=== PATIENT | male | born 1980 | race Caucasian/White ===

== ENCOUNTER 2024-11-29 15:38 | Outpatient (AMB) | payer OTHER, SELFPAY ==
--- NOTE | 2024-11-29 15:46 | A.OFFVIS_ITS ---
Intake Visit Reasons: history of nephrolithiasis and pyelonephritis Intake Note: New Patient presents for initial visit for nephrolithiasis and pyelonephritis Urology Medications: none Blood Thinner:none Church Warden Required: No Accompanied by: Self / Same As Patient Allergies pecans Allergy (Uncoded 11/29/24 17:19) Anaphylaxis Medication List - Last Reconciled 11/29/24 by BABS Quach lisinopril 10 mg PO DAILY omeprazole 20 mg PO BID HPI Comments Details: Greg is a very pleasant 44-year-old male patient of . He has a past medical history of hypertension and GERD. He presents to the office today as a new patient for his longstanding history of nephrolithiasis. In discussion with the patient today he reports a longstanding history of nephrolithiasis since 2020 and had previously followed up with Dr. Jacques in the past. He reports this past fall he incontinent of the episode of nephrolithiasis associated with hematuria at which time he followed up at [facility] in a CT KUB was ordered for further assessment evaluation. These results were reviewed with the patient today. Bilateral kidneys with no hydronephrosis, nephrolithiasis, or suspicious masses. There is circumferential bladder wall thickening with surrounding stranding suggestive of acute cystitis. He reports shortly after his ER visit pain had since subsided. He has had no bothersome urinary issues or concerns since July 2024. In office urinal ysis results reviewed with the patient today. We discussed at length potential causes of nephrolithiasis as well as adequate hydration relation to nephrolithiasis. He denies urinary urgency, urinary frequency, incontinence, nocturia, hematuria, dysuria, foul smelling urine, changes to urinary stream, flank pain, fever, and or chills. He is happy with his current voiding parameters. We discussed obtaining retroperitoneal ultrasound for further assessment evaluation. He otherwise offers no other issues or concerns at this time. [facility] Medical History (Updated 11/29/24 @ 17:18 by Kassi Phipps) History of Mohs micrographic surgery for skin cancer Severe obesity (BMI 35.0-39.9) with comorbidity Recurrent sinus infections History of kidney stones Hematuria Essential hypertension Chronic GERD Binge eating disorder Basal cell carcinoma of head Acute pyelonephritis Surgical History (Updated 11/29/24 @ 17:18 by Kassi Phipps) History of lithotripsy History of gastric restrictive surgery Review of Systems Const All systems reviewed & are unremarkable except as noted in HPI and below Physical Exam Const General: cooperative, healthy appearing, comfortable, no acute distress, well developed, alert and awake Nutritional Appearance: overweight Orientation/consciousness: patient oriented x3 Limitations: no limitations HEENT Head: Yes normal to inspection, Yes normocephalic and Yes atraumatic Ears: hearing grossly normal bilaterally Eyes General: appearance normal, both eyes and all related structures Neck Neck: Yes normal visual inspection and Yes trachea midline Chest Chest palpation & inspection: normal inspection of the chest Resp Effort & Inspection: normal respiratory effort and able to speak in complete sentences Cardio Rate: regular rate GI Inspection: Yes normal to inspection General: Yes no CVA tenderness Back/Spine/Pelvis Back: no CVA tenderness Skin General skin exam: no rashes or lesions noted Neuro General: patient oriented x3 Extrem General: Yes normal to inspection Psych Appearance: grossly normal and well kempt Mental Status: mental status grossly normal Speech and movement: Normal speech and movement present and Clear speech present Affect: normal affect Attitude: cooperative Thought process: Normal thought process present Thought content: Normal thought content present Insight: Fair insight present (Psych) Judgement: Fair judgement present (Psych) Results AMB Urinalysis, Automated UA Leukoctes 0 Krishan/uL Last Edit by Kassi Phipps on 11/29/24 17:20 UA Nitrite Last Edit by Kassi Phipps on 11/29/24 17:20 UA Urobilinogen 0.2 mg/dL Last Edit by Kassi Phipps on 11/29/24 17:20 UA Protein 0 mg/dL Last Edit by Kassi Phipps on 11/29/24 17:20 UA pH 6.0 Last Edit by Kassi Phipps on 11/29/24 17:20 UA Blood 0 Blas/uL Last Edit by Kassi Phipps on 11/29/24 17:20 UA Specific [place] 1.025 Last Edit by Kassi Phipps on 11/29/24 17:20 UA Ketone Last Edit by Kassi Phipps on 11/29/24 17:20 UA Bilirubin 0 mg/dL Last Edit by Kassi Hensonchirag on 11/29/24 17:20 UA Glucose 0 mg/dL Last Edit by Kassi Hensonchirag on 11/29/24 17:20 Results Reviewed Results Reviewed: Laboratory Last Values Urine pH (Auto) 6.0 11/29/24 17:19 Specific [place] (Auto) 1.025 11/29/24 17:19 Urine Protein (Auto) 0 mg/dL 11/29/24 17:19 Glucose (UA)(Auto) 0 mg/dL 11/29/24 17:19 Urine Blood (Auto) 0 Blas/uL 11/29/24 17:19 Urine Bilirubin (Auto) 0 mg/dL 11/29/24 17:19 Urine Urobilinogen (Auto) 0.2 mg/dL 11/29/24 17:19 Leukocyte Esterase (Auto) 0 Krishan/uL 11/29/24 17:19 Assessment & Plan Assessment & Plan (1) Nephrolithiasis: Code(s): N20.0 - Calculus of kidney Category: Medical Plan In office urinalysis results reviewed the patient today; as noted above. Previous CT abdomen and pelvis results reviewed with the patient today; as noted above. We discussed at length potential causes of nephrolithiasis as well as hematuria. We discussed importance of adequate hydration relation to nephrolithiasis as well as overall health and well-being. Will obtain retroperitoneal ultrasound for further assessment evaluation. Patient currently denies any bothersome urinary issues or concerns. Reports be happy with current voiding parameters. Follow-up in 1-3 months with imaging to be completed prior; or sooner with any issues, concerns, and or questions. Orders: Orders AMB Urinalysis Automated Today Z13.9 - Encounter for screening, unspecified US retroperitoneal comp Today N20.0 - Calculus of kidney Patient Instructions: The patient had an opportunity to ask questions regarding the treatment plan. All questions were answered. Physical exam, labs, and imaging were discussed and reviewed in detail. As well as risks, benefits, and discussion of treatment choices. No major barriers to understanding were identified. The patient expressed understanding and agreement with the above treatment plan. The patient was made aware they should contact our office by phone for worsening of their current condition, the appearance of new symptoms, or with any questions or concerns. Compliance is encouraged with any medications and follow up testing that is ordered. It is a privilege to be allowed the opportunity to participate in? your urological care.? Again, if you have any questions or concerns If you have any questions or concerns please do not hesitate to contact me. The office is [phone]. This note is constructed using voice recognition software. While every effort has been made to ensure accuracy gyroscopic instrument mechanic errors may have been included. Yours sincerely, ЮЛИЯ Quach Coding Level of Care Code New Pt Level 3 (28605) Diagnoses Nephrolithiasis N20.0
== END 2024-11-29 16:30 | disposition home or self-care (01) ==
PROVIDERS: PCP Internal Medicine; Visit Provider Nurse Practitioner Family
DX: Z13.9 Encounter for screening, unspecified (principal); N20.0 Calculus of kidney
CPT/HCPCS: 99203

== ENCOUNTER → 2024-11-29 15:38 | Outpatient (BNVA) | payer OTHER, SELFPAY | PROVIDERS: PCP Internal Medicine; Visit Provider Nurse Practitioner Family | DX: N20.0 Calculus of kidney (principal) | CPT/HCPCS: 81003 ==

== ENCOUNTER 2025-02-17 09:44 | Outpatient (REF) | payer OTHER, SELFPAY ==
--- NOTE | ~2025-02-17 | US_ITS ---
CLINICAL HISTORY: N20.0 - Calculus of kidney US retroperitoneum with color Doppler Comparison: None Findings: Right kidney normal size and echotexture, 11.5 cm length. No hydronephrosis. Normal color flow. No nephrolithiasis. No renal masses. Left kidney normal size and echotexture, 12.4 cm in length. No hydronephrosis. Normal color flow. No nephrolithiasis. No renal masses. Urinary bladder is unremarkable. Prevoid volume 254.0 mL. Postvoid volume 25 0.0 mL. Ureteral jets are visualized bilaterally. Prostate measures 3.6 x 4.1 x 3.4 cm. Impression: 1. Normal kidneys. 2. Elevated postvoid residual there is mild. 3. Prostate volume 26.4 mL This document has been electronically signed by: Shorty De Santiago MD on 02/17/2025 12:24:28
--- OUTSIDE RECORDS SUMMARY | 2025-02-17 10:16 | XMS_ITS | Patient Health Record ---
Author Organization [facility] Address [address] [place] [address] Care Team Providers Care Pharmacy Innovation Assistant Name Role Phone KEVIN GREY Unavailable [phone] BULMARO DEMPSEY Unavailable [phone] ALLERGIES Allergen (clinical drug ingredient) Drug/Non Drug Allergy documented on EMR Reaction Allergy Type Onset Date Status pecan allergenic extract Pecan Nut (Diagnostic) swell Drug Allergy Activ e REASON FOR REFERRAL No Information MEDICATIONS Medication SIG (Take, Route, Fr equency, Duration) Notes Start Date End Date Status Lisinopril 10 MG 1 tablet Orally Once a day Active Zepbound 2.5 MG/0.5ML 0.5 mL Subcutaneou s once a week for 30 days 01/13/2025 Active SOCIAL HISTORY Tobacco Use: Social History Observation Description Date Details (start date - stop date) Never Smoker NA - NA Sex Assigned At : Social History Observation Description Sex Assigned At Unknown Tobacco Use/Smoking Question Answer Notes Are you a nonsmoker Alcohol Screen (Audit-C) Question Answer Notes Did you have a drink containing alcohol in the p ast year? Yes Points 0 Interpretation Negative PROBLEMS Problem Type ICD Code Onset Dates Problem Status W/U Status Risk SNOMED Code Notes Problem Essential hypertension (I10) Active confirmed 96600666 Problem BMI 35.0-35.9,adult (Z68.35) Active confirmed 792212883 Problem BMI 34.0-34.9,adult (Z68.34) Active confirmed 478177307 VITAL SIGNS Heart Rate 87 /min 02/09/2025 Blood pressure diastolic 80 mm Hg 02/09/2025 Oximetry 97 % 02/09/2025 Height 71 in 02/09/2025 Blood pressure systolic 132 mm Hg 02/09/2025 Weight 247.5 lbs 02/09/2025 BMI 34.52 kg/m2 02/09/2025 Encounters Encounter Location Date Provider Diagnosis [facility] [address] [facility] [place] [address] 01/18/[address] [address] [place] [address] 01/25/[address] [facility] [address] [facility] [place] [address] 02/01/[address] [facility] [address] [facility] [place] [address] 02/16/[address] [facility] [address] [facility] [place] [address] 01/10/2025 KEVIN QUE BMI 35.0-35.9,adult Z68.35 ; Obesity, Class II, BMI 35-39.9 E66.812 and Essential hypertension I10 [facility] [address] [place] [address] 02/09/2025 KEVIN QUE BMI 34.0-34.9,adult Z68.34 ; Obesity (BMI 30.0-34.9) E66.811 and Essential hypertension I10 [facility] [address] [place] [address] 01/12/[address] [facility] [address] [place] [address] 01/17/[address] [facility] [address] [place] [address] 01/18/[address] [facility] [address] [place] [address] 01/18/[address] [facility] [address] [place] [address] 01/18/[address] [facility] [address] [place] [address] 01/18/[address] [facility] [address] [place] [address] 01/18/2025 KEVIN QUE ASSESSMENTS Encounter Date Diagnosis Assessment Notes Treatment Notes Treatment Clinical Notes Section Notes 01/10/2025 BMI 35.0-35.9,adult (ICD-10 - Z68.35) Elder is a pleasant 44-year-old male who presents to the office today for weight management. 01/10/2025:BMI 35.18, weight 252.3 patient states that he would like to trial lifestyle changes at this time. Patient encouraged to call the office if he would like to book an appointment for semaglutide as I feel as though he would be a good candidate for this medication. We spent a lot of time discussing the relationship between food, exercise, sleep, mental health and obesity. Patient was counseled on the importance EATING local, organic food when possible. Patient was educated on clean 15 and dirty dozen. I provided information about reading books called The Food Rules by Johnny Art and Eat Fat Get Lean by Dr Haylie Kolb. Self education is important in the journey for weight management. Patient was offered diagnostic testing. We want to measure visceral adiposity, advanced body composition, adverse lipids, fatty acid balance, risk for heart disease and atherosclerosis, markers of inflammation and genetic susceptibility. Patient was counseled on weight management and was advised to lose weight using A. Meal Replacement Products Patient was educated on the replacement products called optifast. This is a good way of taking fixed amount of calories. It has been shown in studies to be ineffective weight management tool. This however has to be coupled with lifestyle intervention as well as laboratory data and EKG monitoring. It is impossible to know how a person will tolerate complete meal replacement. The side effects of meal replacement and weight loss could include syncopal attacks, dizziness, gallstones, potential cholecystectomy, possible heart attack and even . The benefits of meal replacement would be potential weight loss but no guarantees can be made. Meal replacement products are not covered by insurance. Once the patient has bought these products we cannot return them B. Lifestyle management which includes several strategies as below 1. Eat a low carbohydrate good fat good protein diet. Eliminate refined carbohydrates from the diet. Continue blood sugar and sugared beverages. Eat local organic when possible. Cook your own meals. Read food labels. None about healthy snacks. Portion control and food with low glycemic index 2. Exercise regularly. Try to get at least 6000 steps a day. Use a predominant to track activity level. Consider using apps like LUMOback, UpOutpal, lose it, stick as needed for self-monitoring and weight management. Consider group exercises. Consider hiring a personal development educator. Regular exercise is story to sustainable health and prevents as a buffer against weight regain 3. Sleep is most important for healing. Tried to sleep at least 8 hours a night. A good quality sleep needs a sleep ritual with ideal room temperature of around 68. It might help to take a shower and have no electronics in the room and sleep in a very dark room without artificial light. Start her sleep routine and get up early in the morning and go to bed on time 4. Make a social connection. Surround yourself with positive people with positive energy. Connect with friends and family. 5. Get into the habit of meditating and mindfulness while doing everything. 6. Go outside and connect with nature. C. Prescription medications Patient was educated on the use of prescription medications for medical weight loss. This is a growing list and includes phentermine, Topamax,Qsymia, contrave, belviq and saxenda. All prescription medications could have side effects including but not limited to kidney stones seizure disorder cardiac arrhythmias heart attack pancreatitis etc. etc.. Patient was encouraged to read the prescription insert and have coaching with their pharmacist and make an informed decision about taking medication and know that these medications are being prescribed with good intentions and we do not know how a patient would react to her medication. Sudden medications are FDA approved for weight loss and there is also off label use depending on patient's inability to afford medications in an attempt to lose weight D. Behavioral counseling was done to establish a relationship between food and an mood. Patient was provided information about local counseling including the office of Dr. Cason in [place] and Dr Alba at [facility]. We would like to cover regular topics and build on low glycemic eating exercise mindful eating, using yoga and meditation along with deep breathing and connecting with friends and family. E. Patient's current medications were reviewed and opinion was given on medication that can cause weight gain and can be substituted F. Patient was assessed for risk with obesity including and not limiting to atherosclerosis heart disease stroke kidney disease, restrictive lung disease, irritable bowel syndrome and overall mortality. Risk of developing prediabetes diabetes and metabolic syndrome was discussed G. Therapeutic plan: We have decided to make therapeutic plan which would include choosing wisely on calories restricting portion getting active, tracking weight, getting good quality sleep and working on time management H. Patient will follow up in 4 weeks for weight management Total time spent today was 60 minutes of which greater than 50% was spent on coordinating and counseling All questions have been answered to patient's satisfaction. Patient verbalized understanding of diagnosis and treatments explained. Advised to call sooner prior to next visit it any questions/concerns arise. Case discussed with Toñito ACRRERA who reviewed the assessment and plan. Chart, medications, labs, vital signs reviewed. Dictation was accomplished with the use of Elixent voice recognition software, which is prone to medical misidentifications and grammatical errors. This are unintentional and the practitioner does try to identify and correct these, but some could still be present. Please do not hesitate to contact practitioner for clarification. 01/10/2025 Obesity, Class II, BMI 35-39.9 (ICD-10 - E66.812) Elder is a pleasant 44-year-old male who presents to the office today for weight management. 01/10/2025:BMI 35.18, weight 252.3 patient states that he would like to trial lifestyle changes at this time. Patient encouraged to call the office if he would like to book an appointment for semaglutide as I feel as though he would be a good candidate for this medication. We spent a lot of time discussing the relationship between food, exercise, sleep, mental health and obesity. Patient was counseled on the importance EATING local, organic food when possible. Patient was educated on clean 15 and dirty dozen. I provided information about reading books called The Food Rules by Johnny Art and Eat Fat Get Lean by Dr Haylie Kolb. Self education is important in the journey for weight management. Patient was offered diagnostic testing. We want to measure visceral adiposity, advanced body composition, adverse lipids, fatty acid balance, risk for heart disease and atherosclerosis, markers of inflammation and genetic susceptibility. Patient was counseled on weight management and was advised to lose weight using A. Meal Replacement Products Patient was educated on the replacement products called optifast. This is a good way of taking fixed amount of calories. It has been shown in studies to be ineffective weight management tool. This however has to be coupled with lifestyle intervention as well as laboratory data and EKG monitoring. It is impossible to know how a person will tolerate complete meal replacement. The side effects of meal replacement and weight loss could include syncopal attacks, dizziness, gallstones, potential cholecystectomy, possible heart attack and even . The benefits of meal replacement would be potential weight loss but no guarantees can be made. Meal replacement products are not covered by insurance. Once the patient has bought these products we cannot return them B. Lifestyle management which includes several strategies as below 1. Eat a low carbohydrate good fat good protein diet. Eliminate refined carbohydrates from the diet. Continue blood sugar and sugared beverages. Eat local organic when possible. Cook your own meals. Read food labels. None about healthy snacks. Portion control and food with low glycemic index 2. Exercise regularly. Try to get at least 6000 steps a day. Use a predominant to track activity level. Consider using apps like LUMOback, myfitnesspal, lose it, stick as needed for self-monitoring and weight management. Consider group exercises. Consider hiring a personal development educator. Regular exercise is story to sustainable health and prevents as a buffer against weight regain 3. Sleep is most important for healing. Tried to sleep at least 8 hours a night. A good quality sleep needs a sleep ritual with ideal room temperature of around 68. It might help to take a shower and have no electronics in the room and sleep in a very dark room without artificial light. Start her sleep routine and get up early in the morning and go to bed on time 4. Make a social connection. Surround yourself with positive people with positive energy. Connect with friends and family. 5. Get into the habit of meditating and mindfulness while doing everything. 6. Go outside and connect with nature. C. Prescription medications Patient was educated on the use of prescription medications for medical weight loss. This is a growing list and includes phentermine, Topamax,Qsymia, contrave, belviq and saxenda. All prescription medications could have side effects including but not limited to kidney stones seizure disorder cardiac arrhythmias heart attack pancreatitis etc. etc.. Patient was encouraged to read the prescription insert and have coaching with their pharmacist and make an informed decision about taking medication and know that these medications are being prescribed with good intentions and we do not know how a patient would react to her medication. Sudden medications are FDA approved for weight loss and there is also off label use depending on patient's inability to afford medications in an attempt to lose weight D. Behavioral counseling was done to establish a relationship between food and an mood. Patient was provided information about local counseling including the office of Dr. Cason in [place] and Dr Alba at [facility]. We would like to cover regular topics and build on low glycemic eating exercise mindful eating, using yoga and meditation along with deep breathing and connecting with friends and family. E. Patient's current medications were reviewed and opinion was given on medication that can cause weight gain and can be substituted F. Patient was assessed for risk with obesity including and not limiting to atherosclerosis heart disease stroke kidney disease, restrictive lung disease, irritable bowel syndrome and overall mortality. Risk of developing prediabetes diabetes and metabolic syndrome was discussed G. Therapeutic plan: We have decided to make therapeutic plan which would include choosing wisely on calories restricting portion getting active, tracking weight, getting good quality sleep and working on time management H. Patient will follow up in 4 weeks for weight management Total time spent today was 60 minutes of which greater than 50% was spent on coordinating and counseling All questions have been answered to patient's satisfaction. Patient verbalized understanding of diagnosis and treatments explained. Advised to call sooner prior to next visit it any questions/concerns arise. Case discussed with Toñito CARRERA who reviewed the assessment and plan. Chart, medications, labs, vital signs reviewed. Dictation was accomplished with the use of Elixent voice recognition software, which is prone to medical misidentifications and grammatical errors. This are unintentional and the practitioner does try to identify and correct these, but some could still be present. Please do not hesitate to contact practitioner for clarification. 02/09/2025 BMI 34.0-34.9,adult (ICD-10 - Z68.34) Elder is a pleasant 44-year-old male who presents to the office today for weight management. 01/10/2025:BMI 35.18, weight 252.3 patient states that he would like to trial lifestyle changes at this time. Patient encouraged to call the office if he would like to book an appointment for semaglutide as I feel as though he would be a good candidate for this medication. 02/09/2025: BMI 34.52, weight 247.5 we will begin semaglutide 0.5 mg we will submit for Zepbound at patient's 3-month haylie. Patient is here for weight management followup. We focused on significance of healthy lifestyle changes. We talked about need to track steps, work on portion control, read food labels, get adequate sleep, give adequate rest of the body, meditate, frequent nutritious meals including vegetables and healthy choices of meat and elimination of refined carbohydrates. We also talked about mindfulness and mindful eating. Particular focus was on lifestyle changes Total time spent was 30 minutes with greater than 50% spent on counseling and coordinating care All questions have been answered to patient's satisfaction. Patient verbalized understanding of diagnosis and treatments explained. Advised to call sooner prior to next visit it any questions/concerns arise. Case discussed with Toñito CARRERA who reviewed the assessment and plan. Chart, medications, labs, vital signs reviewed. Dictation was accomplished with the use of Elixent voice recognition software, which is prone to medical misidentifications and grammatical errors. This are unintentional and the practitioner does try to identify and correct these, but some could still be present. Please do not hesitate to contact practitioner for clarification. 02/09/2025 Obesity (BMI 30.0-34.9) (ICD-10 - E66.811) Elder is a pleasant 44-year-old male who presents to the office today for weight management. 01/10/2025:BMI 35.18, weight 252.3 patient states that he would like to trial lifestyle changes at this time. Patient encouraged to call the office if he would like to book an appointment for semaglutide as I feel as though he would be a good candidate for this medication. 02/09/2025: BMI 34.52, weight 247.5 we will begin semaglutide 0.5 mg we will submit for Zepbound at patient's 3-month haylie. Patient is here for weight management followup. We focused on significance of healthy lifestyle changes. We talked about need to track steps, work on portion control, read food labels, get adequate sleep, give adequate rest of the body, meditate, frequent nutritious meals including vegetables and healthy choices of meat and elimination of refined carbohydrates. We also talked about mindfulness and mindful eating. Particular focus was on lifestyle changes Total time spent was 30 minutes with greater than 50% spent on counseling and coordinating care All questions have been answered to patient's satisfaction. Patient verbalized understanding of diagnosis and treatments explained. Advised to call sooner prior to next visit it any questions/concerns arise. Case discussed with Toñito CARRERA who reviewed the assessment and plan. Chart, medications, labs, vital signs reviewed. Dictation was accomplished with the use of Elixent voice recognition software, which is prone to medical misidentifications and grammatical errors. This are unintentional and the practitioner does try to identify and correct these, but some could still be present. Please do not hesitate to contact practitioner for clarification. 02/09/2025 Essential hypertension (ICD-10 - I10) Elder is a pleasant 44-year-old male who presents to the office today for weight management. 01/10/2025:BMI 35.18, weight 252.3 patient states that he would like to trial lifestyle changes at this time. Patient encouraged to call the office if he would like to book an appointment for semaglutide as I feel as though he would be a good candidate for this medication. 02/09/2025: BMI 34.52, weight 247.5 we will begin semaglutide 0.5 mg we will submit for Zepbound at patient's 3-month haylie. Patient is here for weight management followup. We focused on significance of healthy lifestyle changes. We talked about need to track steps, work on portion control, read food labels, get adequate sleep, give adequate rest of the body, meditate, frequent nutritious meals including vegetables and healthy choices of meat and elimination of refined carbohydrates. We also talked about mindfulness and mindful eating. Particular focus was on lifestyle changes Total time spent was 30 minutes with greater than 50% spent on counseling and coordinating care All questions have been answered to patient's satisfaction. Patient verbalized understanding of diagnosis and treatments explained. Advised to call sooner prior to next visit it any questions/concerns arise. Case discussed with Toñito CARRERA who reviewed the assessment and plan. Chart, medications, labs, vital signs reviewed. Dictation was accomplished with the use of Elixent voice recognition software, which is prone to medical misidentifications and grammatical errors. This are unintentional and the practitioner does try to identify and correct these, but some could still be present. Please do not hesitate to contact practitioner for clarification. 01/10/2025 Essential hypertension (ICD-10 - I10) Elder is a pleasant 44-year-old male who presents to the office today for weight management. 01/10/2025:BMI 35.18, weight 252.3 patient states that he would like to trial lifestyle changes at this time. Patient encouraged to call the office if he would like to book an appointment for semaglutide as I feel as though he would be a good candidate for this medication. We spent a lot of time discussing the relationship between food, exercise, sleep, mental health and obesity. Patient was counseled on the importance EATING local, organic food when possible. Patient was educated on clean 15 and dirty dozen. I provided information about reading books called The Food Rules by Johnny Art and Eat Fat Get Lean by Dr Haylie Kolb. Self education is important in the journey for weight management. Patient was offered diagnostic testing. We want to measure visceral adiposity, advanced body composition, adverse lipids, fatty acid balance, risk for heart disease and atherosclerosis, markers of inflammation and genetic susceptibility. Patient was counseled on weight management and was advised to lose weight using A. Meal Replacement Products Patient was educated on the replacement products called optifast. This is a good way of taking fixed amount of calories. It has been shown in studies to be ineffective weight management tool. This however has to be coupled with lifestyle intervention as well as laboratory data and EKG monitoring. It is impossible to know how a person will tolerate complete meal replacement. The side effects of meal replacement and weight loss could include syncopal attacks, dizziness, gallstones, potential cholecystectomy, possible heart attack and even . The benefits of meal replacement would be potential weight loss but no guarantees can be made. Meal replacement products are not covered by insurance. Once the patient has bought these products we cannot return them B. Lifestyle management which includes several strategies as below 1. Eat a low carbohydrate good fat good protein diet. Eliminate refined carbohydrates from the diet. Continue blood sugar and sugared beverages. Eat local organic when possible. Cook your own meals. Read food labels. None about healthy snacks. Portion control and food with low glycemic index 2. Exercise regularly. Try to get at least 6000 steps a day. Use a predominant to track activity level. Consider using apps like LUMOback, myKitsy Lanepal, lose it, stick as needed for self-monitoring and weight management. Consider group exercises. Consider hiring a personal development educator. Regular exercise is story to sustainable health and prevents as a buffer against weight regain 3. Sleep is most important for healing. Tried to sleep at least 8 hours a night. A good quality sleep needs a sleep ritual with ideal room temperature of around 68. It might help to take a shower and have no electronics in the room and sleep in a very dark room without artificial light. Start her sleep routine and get up early in the morning and go to bed on time 4. Make a social connection. Surround yourself with positive people with positive energy. Connect with friends and family. 5. Get into the habit of meditating and mindfulness while doing everything. 6. Go outside and connect with nature. C. Prescription medications Patient was educated on the use of prescription medications for medical weight loss. This is a growing list and includes phentermine, Topamax,Qsymia, contrave, belviq and saxenda. All prescription medications could have side effects including but not limited to kidney stones seizure disorder cardiac arrhythmias heart attack pancreatitis etc. etc.. Patient was encouraged to read the prescription insert and have coaching with their pharmacist and make an informed decision about taking medication and know that these medications are being prescribed with good intentions and we do not know how a patient would react to her medication. Sudden medications are FDA approved for weight loss and there is also off label use depending on patient's inability to afford medications in an attempt to lose weight D. Behavioral counseling was done to establish a relationship between food and an mood. Patient was provided information about local counseling including the office of Dr. Cason in [place] and Dr Alba at [facility]. We would like to cover regular topics and build on low glycemic eating exercise mindful eating, using yoga and meditation along with deep breathing and connecting with friends and family. E. Patient's current medications were reviewed and opinion was given on medication that can cause weight gain and can be substituted F. Patient was assessed for risk with obesity including and not limiting to atherosclerosis heart disease stroke kidney disease, restrictive lung disease, irritable bowel syndrome and overall mortality. Risk of developing prediabetes diabetes and metabolic syndrome was discussed G. Therapeutic plan: We have decided to make therapeutic plan which would include choosing wisely on calories restricting portion getting active, tracking weight, getting good quality sleep and working on time management H. Patient will follow up in 4 weeks for weight management Total time spent today was 60 minutes of which greater than 50% was spent on coordinating and counseling All questions have been answered to patient's satisfaction. Patient verbalized understanding of diagnosis and treatments explained. Advised to call sooner prior to next visit it any questions/concerns arise. Case discussed with Toñito CARRERA who reviewed the assessment and plan. Chart, medications, labs, vital signs reviewed. Dictation was accomplished with the use of Elixent voice recognition software, which is prone to medical misidentifications and grammatical errors. This are unintentional and the practitioner does try to identify and correct these, but some could still be present. Please do not hesitate to contact practitioner for clarification. PLAN OF TREATMENT Next Appt Details Provider Name:BULMARO DEMPSEY, 02/23/2025 03:00:00 PM, [address], [place], [address], Provider Name:BULMARO DEMPESY, 03/02/2025 03:00:00 PM, [address], [place], [address], Provider Name:BULMARO DEMPSEY, 03/09/2025 03:00:00 PM, [address], [place], [address], Provider Name:KEVIN GREY, 03:00:00 PM, [address], [place], [address], Insurance Providers Payer Name Payer Address Payer Phone Subscriber Number Group Number Insured Name Patient Relationship to Insured Coverage Start Date Coverage End Date [facility] [address] [place] [address] [phone] [id number] ELDER SERVIN Self - patient is the insured MEDICATIONS ADMINISTERED Medication Instructions Date of Administration Dosage Notes Semaglutide 02/09/2025 0.5 mg Semaglutide 02/16/2025 0.5 mg Tirzepatide 01/18/2025 2.5 mg Tirzepatide 01/25/2025 2.5 mg Tirzepatide 02/01/2025 2.5 mg MEDICAL (GENERAL) HISTORY Medical History History ICD Code high blood pressure Surgical History Surgery Date(Month/Year) gastric bypass
--- OUTSIDE RECORDS SUMMARY | 2025-02-17 10:16 | XMS_ITS ---
Author Organization [facility] Address [address] [place] [address] Care Team Providers Care Bedspring Assembler Name Role Phone KEVIN GREY Unavailable [phone] ALLERGIES Allergen (clinical drug ingredient) Drug/Non Drug Allergy documented on EMR Reaction Allergy Type Onset Date Status pecan allergenic extract Pecan Nut (Diagnostic) swell Drug Allergy Activ e REASON FOR VISIT Patient is here for Weight Management follow up. Seca done for review. Todays current weight in is 247.5, Last weight in was 252.3 MEDICATIONS Medication SIG (Take, Route, Fr equency, [...] Question Answer Notes Are you a nonsmoker PROBLEMS Problem Type ICD Code Onset Dates Problem Status W/U Status Risk SNOMED Code Notes Problem BMI 34.0-34.9,ad ult (Z68.34) Active confirmed [id number] VITAL SIGNS Blood pressure systolic 132 mm Hg 02/10/20 25 Blood pressure diastolic 80 mm Hg 025 Heart Rate 87 /min 02/09/2025 Height 71 in 02/09/2025 Weight 247.5 lbs 02/09/2025 BMI 34.52 kg/m2 02/09/2025 Oximetry 97 % 02/09/2025 Encounters Encounter Location Date Provider Diagnosis [facility] [address] [place] [address] 02/09/2025 KEVIN GREY BMI 34.0-34.9,adult Z68.34 ; Obesity (BMI 30.0-34.9) E66.811 and Essential hypertension I10 ASSESSMENTS Encounter Date Diagnosis Assessment Notes Treatment Notes Treatment Clinical Notes Section Notes 02/09/2025 BMI 34.0-34.9,adult (ICD-10 - Z68.34) Elder [...] Dictation was accomplished with the use of GeekStatus voice recognition software, which is prone to [...] Dictation was accomplished with the use of GeekStatus voice recognition software, which is prone to [...] Dictation was accomplished with the use of GeekStatus voice recognition software, which is prone to medical misidentifications and grammatical errors. This are unintentional and the practitioner does try to identify and correct these, but some could still be present. Please do not hesitate to contact practitioner for clarification. PLAN OF TREATMENT Next Appt Details Follow Up: 4 Weeks, Reason: Provider Name:BULMARO DEMPSEY, 02/23/2025 03:00:00 PM, [address] [place], [address], Provider Name:BULMARO DEMPSEY, 03/02/2025 03:00:00 PM, [address] , [place], [address], Provider Name:BULMARO DEMPSEY, 03/09/2025 03:00:00 PM, [address] [place], [address], Provider Name:KEVIN GREY, 03:00:00 PM, [address] [place], [address], MEDICATIONS ADMINISTERED Medication Instructions Date of Administration Dosage Notes Semaglutide 02/09/2025 0.5 mg Progress Notes * ELDER SERVINDOB: (44 yo M)Acc No.[id number]:02/09/2025 Patient:??ELDER SERVIN AEL Provider:??KEVIN GREY PA-C :1980?Age:44 Y?Sex:Collette le Date:02/09/2025 Address:[address] , [facility] Subjective: * Chief Complaints: * ?1. Patient is here for Weight Management follow up. Alessandra done for review. Todays current weight in is 247.5, Last weight in was 252.3. * HPI: ?Constitutional:? Elder is a pleasant 44-year-old male with a past medical history of hypertension who presents to the office today for a weight management follow-up. Patient was previously on trizepatide 2.5 mg, now switching to semaglutide 0.25mg... Requesting Zepbound to be sent once he hits his 3-month haylie. ?BMI 34.52, weight 247.5. * ROS:?Constitutional: Patient denies any excessive fatigue with exercise, no weight loss, no fever and no night sweats ???Eyes: No eye discharge, no itching, no redness. Advised the significance of regular eye exams to screen for glaucoma and other eye problems ???Ear nose throat: No sore throat, postnasal drip, runny nose, Sneezing ???Cardiovascular: No chest pain, no shortness of breath, no dyspnea on exertion, no PND, no orthopnea, no irregular pulse ???Respiratory: No chronic cough, no hemoptysis, no sputum, no wheezing ???GI, no diarrhea, no constipation no blood in the stools, no pain associated with eating, no indigestion ???Genitourinary: No painful urination no hesitancy no blood in the urine ???Musculoskeletal, no limitations to walking and running, no joint deformity, no joint stiffness, no chronic back pain, no noise with joint movement ???Integumentary, no new skin rash. No new changes in skin moles ???Neurological: No history of seizures, memory loss, No language dysfunction, No inability to concentrate, no localized weakness, no sensation loss, no confusion ???Psychiatric: No depression, no suicidal thoughts, no anxiety ???Endocrine: No polyuria no polyphagia or polydipsia, no heat intolerance no cold intolerance ???Hematological: No easy bruising or Lymph node swelling. * Medical History:??High blood pressure. * Surgical History:??gastric b ypass . * Hospitalization/Major Diagno stic Procedure:??Denies Past Hospitalization. * Family History:??Father: wilbur ve 70 yrs.??Mother: alive 67 yrs.??2 brother(s) , 1 sister(s) . .?? mother - history of hypertension, diabetes, cholesterol father- history of chrons brother age 50- throat cancer. * Social History:?Tobacco Use:??Tobacco Use/Smoking??Are you a??nonsmoker.?? * Medications:??Taking Lisinop ril 10 MG Tablet 1 tablet Orally Once a day , Taking Zepbound 2.5 MG/0.5ML Solution Auto-injector 0.5 mL Subcutaneous once a week , Medication List reviewed and reconciled with the patient * Allergies:??Pecan Nut (Diagn ostic): swell. Objective: * Vitals:??HR:87/min, BP:132/8 0mm Hg, Wt:247.5lbs, BMI:34.52Index, Ht: 71 in, Oxygen sat %:97%. * Physical Examination:?General: Age appropriate, well-appearing male in no acute distress, speaking in full sentences without visible respiratory distress. Well groomed, well developed. Alert, interactive. ?Skin: Warm, dry without new lesions ?HEENT: Normocephalic/atraumatic. ?Cardiac: Regular rate and rhythm without murmurs, rubs, or gallops. 2+ radial pulses bilaterally. ?Abdomen: Non tender to palpation, normoactive bowel sounds appreciated ?Lungs: Equal chest rise and fall bilaterally. ?Neuro: Steady gait with non-assisted ambulation observed. ?Psych: Stable mood and affect. Assessment: * Assessment: 1.??Obesity (BMI 30.0-34.9) - E66.811 (Primary)??2.??BMI 34.0-34.9,adult - Z68.34??3.??Essential hypertension - I10?? Elder is a pleasant 44-year-o ld male who presents to the office today [...] Dictation was accomplished with the use of GeekStatus voice recognition software, which is prone to medical misidentifications and grammatical errors. This are unintentional and the practitioner does try to identify and correct these, but some could still be present. Please do not hesitate to contact practitioner for clarification. Plan: * Treatment: * Therapeutic Injections:? Semaglutide : 0.5 mg (Route: Subcutaneous) given by JENNY CHESTER on subcutaneus * Procedure Codes:??40301 P/M GAME DESIGN INSTRUCTOR, INDIV 15 MIN, Modifiers: 33 , SA * Follow Up:??4 Weeks * Images: Billing Information: * Visit Code:?? 34622 Office Visit, Est Pt., Level 4. Modifiers: SA * Procedure Codes:?? 21607 P/M GAME DESIGN INSTRUCTOR, INDIV 15 MIN. Modifiers: 33, SA * Sign off status: Completed true * Provider:??KEVIN GREY PA-C Date:??02/09 History and Physical Notes * HPI (History of Present Illness) Category Sub-Category Detail Notes Category Not es Constitutional Elder is a pleasant 44-year-old male with a past medical history of hypertension who presents to the office today for a weight management follow-up. Patient was previously on trizepatide 2.5 mg, now switching to semaglutide 0.25mg... Requesting Zepbound to be sent once he hits his 3-month haylie. BMI 34.52, weight 247.5 Physical Examination Category Sub-Category Detail Notes Section Note s General: Age appropriate, well-appearing male in no acute distress, speaking in full sentences without visible respiratory distress. Well groomed, well developed. Alert, interactive. Skin: Warm, dry without new lesions HEENT: Normocephalic/atraumatic. Cardiac: Regular rate and rhythm without murmurs, rubs, or gallops. 2+ radial pulses bilaterally. Abdomen: Non tender to palpation, normoactive bowel sounds appreciated Lungs: Equal chest rise and fall bilaterally. Neuro: Steady gait with non-assisted ambulation observed. Psych: Stable mood and affect.
--- OUTSIDE RECORDS SUMMARY | 2025-02-17 10:16 | XMS_ITS ---
Author Organization [facility] Address [address] [place] [address] Care Team Providers Care Quarry Worker Name Role Phone KEVIN GERY Unavailable [phone] JOLEEN LUCIO Unavailable [phone] REASON FOR VISIT pt here for tirzepatide 2.5mg, pt tolerated well. consent form signed Encounters Encounter Location Date Provider Diagnosis [facility] [address] [place] [address] 02/01/2025 JOLEEN LUCIO PLAN OF TREATMENT Next Appt Details Provider Name:JOLEEN LUCIO, 02/23/2025 03:00:00 PM, [address] , [place], [address], Provider Name:JOLEEN LUCIO, 03/02/2025 03:00:00 PM, [address] , [place], [address], Provider Name:JOLEEN LUCIO, 03/09/2025 03:00:00 PM, [address] [place], [address], Provider Name:KEVIN GREY, 03:00:00 PM, [address] [place], [address], MEDICATIONS ADMINISTERED Medication Instructions Date of Administration Dosage Notes Tirzepatide 02/01/2025 2.5 mg Progress Notes * ELDER SERVINDOB: (44 yo M)Acc No.[id number]:02/01/2025 Patient:[facility] Provider:??Joleen Lucio MD :1980?Age:44 Y?Sex:Ma le Date:02/01/2025 Address:[address] [place] [address] , [facility] Subjective: * Chief Complaints: * ?1. Pt here for tirzepa tide 2.5mg, pt tolerated well. consent form signed. * Medical History:?? Objective: Assessment: Plan: * Treatment: * Therapeutic Injections:? Tirzepatide : 2.5 mg (Route: Subcutaneous) given by Elva Mcgarry on subcutaneus * Images: Billing Information: * Visit Code:?? * Procedure Codes:?? * Sign off status: Pending * Provider:??Joleen Lucio MD Date:??02/01
--- OUTSIDE RECORDS SUMMARY | 2025-02-17 10:16 | XMS_ITS | Clinical Summary ---
Author Organization [facility] Address [address] [place], [place] [id number] Care Team Providers Care Proposal Director Name Role Phone Darryl Victor DO Primary Care Provider [phone] Allergies No known active allergies Medications Medication Sig Dispensed Refills Start Date End Date Status lisinopril (PRINIVIL,ZESTRIL) tablet 20 mg Take 1 tablet by mouth daily. 0 08/22/2015 Active omeprazole (PriLOSEC) 20 MG capsule Take 20 mg by mouth 2 (two) times a day. 0 05/08/2021 Active Family History Medical History Relation Name Comments Diabetes Father Hyperlipidemia Father Hypertension Father Relation Name Status Comments Father Social History Tobacco Use Types Packs/Day Years Used Date Smoking Tobacco: Never Smokeless Tobacco: Never Alcohol Use Standard Drinks/Week Comments Never 0 (1 standard drink = 0.6 oz pur e alcohol) Sex and Gender Information Value Date Recorded Sex Assigned at Not on file Gender Identity Not on file Sexual Orientation Not on file Job Start Date Occupation Industry Not on file Not on file Not on file Last Filed Vital Signs Vital Sign Reading Time Taken Comments Blood Pressure - - Pulse - - Temperature - - Respiratory Rate - - Oxygen Saturation - - Inhaled Oxygen Concentration - - Weight 106.6 kg (235 lb) 07/23/2021 9:56 AM EDT Height 180.3 cm (5' 11 ) 07/23/2021 9:56 AM EDT Body Mass Index 32.78 07/23/2021 9:56 AM EDT Plan of Treatment Health Maintenance Due Date Last Done Comments Hepatitis B Vaccines (1 of 3 - 3-dose series) 1980 Hepatitis C Screening 1980 COVID-19 Vaccine (#1) 05/23/1980 Depression Screening 1991 BMI Counseling 1997 Preventative Health Evaluation 1997 DTap / Tdap / Td (2 - Td or Tdap) 08/27/2022 012 Influenza Vaccine (#1) 2024 Colon Cancer Screening (Colonoscopy) 2024 Pneumococcal Vaccine Aged Out No long er eligible based on patient's age to complete this topic RSV Ped < 20 months Aged Out No longe r eligible based on patient's age to complete this topic Care Teams Proposal Director Relationship Specialty Start Date End Date Darryl Victor DO [address] [place] [id number] PCP - General Internal Medicine 07/22/21
--- OUTSIDE RECORDS SUMMARY | 2025-02-17 10:16 | XMS_ITS ---
Author Organization [facility] Address [address] [place] [address] Care Team Providers Care Perlite Grinder Name Role Phone KEVIN GREY Unavailable [phone] JOLEEN LUCIO Unavailable [phone] REASON FOR VISIT pt is here for sema 0.5mg. pt signed consent and left the office in stable condition MEDICATIONS Medication SIG (Take, Route, Fr equency, Duration) Notes Start Date End Date Status Lisinopril 10 MG 1 tablet Orally Once a day Active Zepbound 2.5 MG/0.5ML 0.5 mL Subcutaneou s once a week for 30 days 01/13/2025 Active Encounters Encounter Location Date Provider Diagnosis [facility] [address] [place] [address] 02/16/2025 JOLEEN LUCIO PLAN OF TREATMENT Next Appt Details Provider Name:JOLEEN LUCIO, 02/23/2025 03:00:00 PM, [address] [place], [address], Provider Name:JOLEEN LUCIO, 03/02/2025 03:00:00 PM, [address] [place], [address], Provider Name:JOLEEN LUCIO, 03/09/2025 03:00:00 PM, [address] [place], [address], Provider Name:KEVIN GREY, 03:00:00 PM, [address] [place], [address], MEDICATIONS ADMINISTERED Medication Instructions Date of Administration Dosage Notes Semaglutide 02/16/2025 0.5 mg Progress Notes * ELDER SERVIN MICHAELDOB: (44 yo M)Acc No.[id number]:02/16/2025 Patient:??ELDER SERVIN AEL Provider:??Joleen Lucio MD :1980?Age:44 Y?Sex:Ma le Date:02/16/2025 Address:[address] [place], [place] [id number] Subjective: * Chief Complaints: * ?1. Pt is here for sema 0.5mg. pt signed consent and left the office in stable condition. * Medical History:?? * Medications:??Taking Lisinop ril 10 MG Tablet 1 tablet Orally Once a day , Taking Zepbound 2.5 MG/0.5ML Solution Auto-injector 0.5 mL Subcutaneous once a week Objective: Assessment: Plan: * Treatment: * Therapeutic Injections:? Semaglutide : 0.5 mg (Route: Subcutaneous) given by Carmen Singh on subcutaneus * Images: Billing Information: * Visit Code:?? * Procedure Codes:?? * Sign off status: Pending * Provider:??Joleen Lucio MD Date:??02/16
== END 2025-02-17 09:45 | disposition home or self-care (01) ==
LOC: HO.HMGCX 09:44
PROVIDERS: PCP Physician Assistant Medical; Visit Provider Nurse Practitioner Family
DX: N20.0 Calculus of kidney (principal)
CPT/HCPCS: 76770

== ENCOUNTER → 2025-02-17 09:54 | Outpatient (BNV) | payer OTHER, SELFPAY | PROVIDERS: PCP Physician Assistant Medical; Visit Provider Radiology Diagnostic Radiology | DX: N20.0 Calculus of kidney (principal) | CPT/HCPCS: 76770 ==

== ENCOUNTER 2025-02-28 16:07 | Outpatient (AMB) | payer OTHER, SELFPAY ==
--- NOTE | 2025-02-28 16:07 | A.OFFVIS_ITS ---
Intake Visit Reasons: Jessie US/followup Intake Note: Patient presents today for follow up on: nephrolithiasis, pyelonephritis, and ultrasound results Imaging Completed: 02/17/25 Urology Medications: none Blood Thinner:none Broadcast Technician Required: No Accompanied by: Self / Same As Patient Allergies pecans Allergy (Uncoded 02/28/25 16:46) Anaphylaxis Medication List - Last Reconciled 02/28/25 by ЮЛИЯ Quach lisinopril 10 mg PO DAILY omeprazole 20 mg PO BID HPI Comments Details: Greg is a very pleasant 44-year-old male patient of . He has a past medical history of hypertension and GERD. He is being followed up on today via video telehealth for his longstanding history of nephrolithiasis. In discussion with the patient today reports to be doing and feeling well. He denies having had any bothersome urinary issues or concerns. Recent retroperitoneal ultrasound results were reviewed with the patient today. 03/03 bilateral kidneys are normal in size and echotexture. No nephrolithiasis, renal masses, and or hydronephrosis noted bilaterally. The urinary bladder is unremarkable. Pre void bladder volume is approximately 250 mL. Postvoid bladder volume is approximately 25 mL. Prostate measures 26 mL. He discusses his longstanding history of nephrolithiasis since 2020 prior to his bariatric surgery. We discussed at length potential causes of nephrolithiasis as well as adequate hydration relation to nephrolithiasis. He denies urinary urgency, urinary frequency, incontinence, nocturia, hematuria, dysuria, foul smelling urine, changes to urinary stream, flank pain, fever, and or chills. He is happy with his current voiding parameters. He otherwise offers no other issues or concerns at this time. [facility] Medical History History of Mohs micrographic surgery for skin cancer Severe obesity (BMI 35.0-39.9) with comorbidity Recurrent sinus infections History of kidney stones Hematuria Essential hypertension Chronic GERD Binge eating disorder Basal cell carcinoma of head Acute pyelonephritis Surgical History History of lithotripsy History of gastric restrictive surgery Review of Systems Const All systems reviewed & are unremarkable except as noted in HPI and below Physical Exam Const General: cooperative, healthy appearing, comfortable, no acute distress, well developed, alert and awake Orientation/consciousness: patient oriented x3 Resp Effort & Inspection: normal respiratory effort and able to speak in complete sentences Neuro General: patient oriented x3 Psych Appearance: grossly normal and well kempt Mental Status: mental status grossly normal Speech and movement: Clear speech present Affect: normal affect Attitude: cooperative Thought process: Normal thought process present Insight: Fair insight present (Psych) Judgement: Fair judgement present (Psych) Telehealth Telehealth Telehealth Platform: [employer] Location of provider rendering services: practice address Location of patient: address on file Patient Identification confirmed using: Name, : Yes Telehealth method: video Patient verbally consented to treatment: Yes Patient verbally consented to billing insurance company: Yes Patient informed of any privacy concerns related to visit: Yes Minutes spent on Phone/Video with Pt.: 15 Results Reviewed Results Reviewed: Date of Service: 02/17/25 Procedure(s): US retroperitoneal comp Comparison: None Findings: Right kidney normal size and echotexture, 11.5 cm length. No hydronephrosis. Normal color flow. No nephrolithiasis. No renal masses. Left kidney normal size and echotexture, 12.4 cm in length. No hydronephrosis. Normal color flow. No nephrolithiasis. No renal masses. Urinary bladder is unremarkable. Prevoid volume 254.0 mL. Postvoid volume 25 0.0 mL. Ureteral jets are visualized bilaterally. Prostate measures 3.6 x 4.1 x 3.4 cm. Impression: 1. Normal kidneys. 2. Elevated postvoid residual there is mild. 3. Prostate volume 26.4 mL Assessment & Plan Assessment & Plan (1) Nephrolithiasis: Code(s): N20.0 - Calculus of kidney Category: Medical Plan Recent retroperitoneal ultrasound results reviewed with the patient today; as noted above. Patient currently denies any bothersome urinary issues or concerns. He reports be happy with current voiding parameters. We discussed importance of adequate hydration relation to nephrolithiasis as well as overall health and well-being. Continue adding 1 oz of lemon juice to water daily. Will continue with surveillance monitoring. Will obtain renal ultrasound in 6 months. Follow-up in 6 months with imaging to be completed prior; or sooner with any issues, concerns, and or questions. Orders: Orders US renal BI 6 Months N20.0 - Calculus of kidney Patient Instructions: The patient had an opportunity to ask questions regarding the treatment plan. All questions were answered. Physical exam, labs, and imaging were discussed and reviewed in detail. As well as risks, benefits, and discussion of treatment choices. No major barriers to understanding were identified. The patient expressed understanding and agreement with the above treatment plan. The patient was made aware they should contact our office by phone for worsening of their current condition, the appearance of new symptoms, or with any questions or concerns. Compliance is encouraged with any medications and follow up testing that is ordered. It is a privilege to be allowed the opportunity to participate in? your urological care.? Again, if you have any questions or concerns If you have any questions or concerns please do not hesitate to contact me. The office is [phone]. This note is constructed using voice recognition software. While every effort has been made to ensure accuracy disposal operator errors may have been included. Yours sincerely, ЮЛИЯ Quach Coding Level of Care Code Tele Est Pt Level 3 (33511) Diagnoses Nephrolithiasis N20.0
--- OUTSIDE RECORDS SUMMARY | 2025-02-28 18:44 | XMS_ITS ---
Author Organization [facility] Address [address] [place] [address] Care Team Providers Care Senior Clinician Name Role Phone KEVIN GREY Unavailable [phone] JOLEEN LUCIO Unavailable [phone] REASON FOR VISIT pt presents in office today for nurse visit, administered semaglutide 0.5mg into his LLQ SQ and he tolerated injection well; unfortunately I forgot to obtain his signed consent but he did state that hes been tolerating the SEMA well since the change MEDICATIONS Medication SIG (Take, Route, Fr equency, Duration) Notes Start Date End Date Status Zepbound 2.5 MG/0.5ML 0.5 mL Subcutaneou s once a week for 30 days 01/13/2025 Active Lisinopril 10 MG 1 tablet Orally Once a day Active Encounters Encounter Location Date Provider Diagnosis [facility] [address] [place] [address] 02/23/2025 JOLEEN LUCIO PLAN OF TREATMENT Next Appt Details Provider Name:JOLEEN LUCIO, 03/02/2025 09:15:00 AM, [address], [place], [address], Provider Name:JOLEEN LUCIO, 03/09/2025 03:00:00 PM, [address], [place], [address], Provider Name:KEVIN GREY, 03:00:00 PM, [address], [place], [address], MEDICATIONS ADMINISTERED Medication Instructions Date of Administration Dosage Notes Semaglutide 02/23/2025 0.5 mg LLQ SQ Progress Notes * 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 pt presents in offi ce today for nurse visit, administered semaglutide 0.5mg into his LLQ SQ and he tolerated injection well; unfortunately I forgot to obtain his signed consent but he did state that hes been tolerating the SEMA well since the change. * Medical History:?? * Medications:??Taking Lisinop ril 10 MG Tablet 1 tablet Orally Once a day , Taking Zepbound 2.5 MG/0.5ML Solution Auto-injector 0.5 mL Subcutaneous once a week Objective: Assessment: Plan: * Treatment: * Therapeutic Injections:? Semaglutide : 0.5 mg (Route: Subcutaneous) given by Marisela Ag on subcutaneus * Images: Billing Information: * Visit Code:?? * Procedure Codes:?? * Sign off status: Pending * Provider:??Joleen Lucio MD Date:??02/23
--- OUTSIDE RECORDS SUMMARY | 2025-02-28 18:44 | XMS_ITS | Clinical Summary ---
Author Organization [facility] Address [address] [place], [place] [id number] Care Team Providers Care Coat Repair Inspector Name Role Phone Darryl Victor DO Primary Care Provider [phone] Allergies No known active allergies Medications Medication [...] age to complete this topic Care Teams Coat Repair Inspector Relationship Specialty Start Date End Date Darryl Victor DO [address] [place] [id number] PCP - General Internal Medicine 07/22/21
--- OUTSIDE RECORDS SUMMARY | 2025-02-28 18:44 | XMS_ITS | Patient Health Record ---
Author Organization [facility] Address [address] [place] [address] Care Team Providers Care Side Seam Machine Operator Name Role Phone KEVIN GREY Unavailable [phone] BULMARO DEMPSEY Unavailable [phone] ALLERGIES Allergen (clinical drug ingredient) Drug/Non Drug [...] 1 tablet Orally Once a day Active SOCIAL HISTORY Tobacco Use: Social History [...] Notes Problem Essential hypertension (I10) Active confirmed 64153792 Problem BMI 35.0-35.9,adult (Z68.35) Active confirmed 092785690 Problem BMI 34.0-34.9,adult (Z68.34) Active confirmed 778457100 VITAL SIGNS Heart Rate 87 /min 02/09/2025 Oximetry 97 % 02/09/2025 Blood pressure diastolic 80 mm Hg 02/09/2025 Height 71 in 02/09/2025 Blood pressure systolic 132 mm Hg 02/09/2025 Weight 247.5 lbs 02/09/2025 BMI 34.52 kg/m2 02/09/2025 Encounters Encounter Location Date Provider Diagnosis [facility] [address] [place] [address] 01/18/[address] [facility] [address] [place] [address] 01/25/[address] [facility] [address] [place] [address] 02/01/[address] [facility] [address] [place] [address] 02/16/[address] [facility] [address] [place] [address] 02/23/[address] [facility] [address] [place] [address] 01/10/2025 KEVIN QUE BMI 35.0-35.9,adult Z68.35 ; Obesity, Class II, BMI 35-39.9 E66.812 and Essential hypertension I10 [facility] [address] [place] [address] 02/09/2025 KEVIN QUE BMI 34.0-34.9,adult Z68.34 ; Obesity (BMI 30.0-34.9) E66.811 and Essential hypertension I10 [facility] [address] [place] [address] 01/12/[address] [facility] [address] [place] [address] 01/17/[address] [facility] [address] [place] [address] 01/18/[address] [facility] [address] [place] [address] 01/18/[address] [facility] [address] [place] [address] 01/18/[address] [facility] [address] [place] [address] 01/18/[address] [facility] [address] [place] [address] 01/18/[address] [facility] [address] [place] [address] 02/22/2025 KEVIN GREY [facility] [address] [facility] [address] 02/22/2025 KEVIN QEU ASSESSMENTS Encounter Date Diagnosis Assessment Notes Treatment [...] Dictation was accomplished with the use of [employer] voice recognition software, which is prone to [...] Dictation was accomplished with the use of [employer] voice recognition software, which is prone to medical misidentifications and grammatical errors. This are unintentional and the practitioner does try to identify and correct these, but some could still be present. Please do not hesitate to contact practitioner for clarification. 01/10/2025 BMI 35.0-35.9,adult (ICD-10 - Z68.35) Elder [...] books called The Food Rules by Johnny Pollen and Eat Fat Get Lean by Dr [...] track activity level. Consider using apps like Trot, myfitnesspal, lose it, stick as needed for self-monitoring and weight management. Consider group exercises. Consider hiring a personal protection specialist. Regular exercise is story to sustainable health [...] including the office of Dr. Cason in [place] and Dr Alba at [employer]. We would like to cover regular topics [...] Dictation was accomplished with the use of [employer] voice recognition software, which is prone to [...] track activity level. Consider using apps like [employer] exceSafe N Clearise, [employer] Grouppal, lose it, stick as needed for self-monitoring and weight management. Consider group exercises. Consider hiring a personal protection specialist. Regular exercise is story to sustainable health [...] including the office of Dr. Cason in [place] and Dr Alba at [facility]. We would like to cover regular topics [...] Dictation was accomplished with the use of [employer] voice recognition software, which is prone to [...] track activity level. Consider using apps like Trot, [employer] Grouppal, lose it, stick as needed for self-monitoring and weight management. Consider group exercises. Consider hiring a personal protection specialist. Regular exercise is story to sustainable health [...] including the office of Dr. Cason in [place] and Dr Alba at [facility]. We would like to cover regular topics [...] Dictation was accomplished with the use of [employer] voice recognition software, which is prone to [...] Dictation was accomplished with the use of [employer] voice recognition software, which is prone to medical misidentifications and grammatical errors. This are unintentional and the practitioner does try to identify and correct these, but some could still be present. Please do not hesitate to contact practitioner for clarification. PLAN OF TREATMENT Next Appt Details Provider Name:BULMARO DEMPSEY, 03/02/2025 09:15:00 AM, [address] [place] [address] [place], [place], [address], Provider Name:BULMARO DEMPSEY, 03/09/2025 03:00:00 PM, [address] [place] [address] [place], [place], [address], Provider Name:KEVIN GREY, 03:00:00 PM, [address] [place] [address] [place], [place], [address], Insurance Providers Payer Name Payer Address Payer Phone Subscriber Number Group Number Insured Name Patient Relationship to Insured Coverage Start Date Coverage End Date [facility] [address] [place] [address] [phone] [id number] ELDER SERVIN Self - patient is the insured MEDICATIONS ADMINISTERED Medication Instructions Date of Administration Dosage Notes Semaglutide 02/09/2025 0.5 mg Semaglutide 02/16/2025 0.5 mg Semaglutide 02/23/2025 0.5 mg LLQ SQ Tirzepatide 01/18/2025 2.5 mg Tirzepatide 01/25/2025 2.5 mg Tirzepatide 02/01/2025 2.5 mg MEDICAL (GENERAL) HISTORY Medical History History ICD Code high blood pressure Surgical History Surgery Date(Month/Year) gastric bypass
--- OUTSIDE RECORDS SUMMARY | 2025-02-28 18:44 | XMS_ITS ---
Author Organization [facility] Address [address] [place] [address] Care Team Providers Care Ux Visual Designer Name Role Phone QUE, KEVIN Unavailable [phone] REASON FOR VISIT RE:Appointment time Encounters Encounter Location Date Provider Diagnosis [facility] [address] [place] [address] 02/22/2025 KEVIN GREY PLAN OF TREATMENT Next Appt Details Provider Name:BULMARO DEMPSEY, 03/02/2025 09:15:00 AM, [address], [place], [address], Provider Name:BULMARO DEMPSEY, 03/09/2025 03:00:00 PM, [address] [place], [address], Provider Name:KEVIN GREY, 03:00:00 PM, [place], [address], Progress Notes * ELDER SERVIN GUILHERMEDOB: (44 yo M)Acc No.[id number]:02/22/2025 Patient:??ELDER SERVIN AEL :1980?Age:44 Y?Sex:Collette hernandez Address:[address] , [place] [address] * true * Date:??
--- OUTSIDE RECORDS SUMMARY | 2025-02-28 18:44 | XMS_ITS ---
Author Organization [facility] Address [address] [place] [address] Care Team Providers Care Fac Engineer Name Role Phone QUE KEVIN Unavailable [phone] REASON FOR VISIT Appointment time Encounters Encounter Location Date Provider Diagnosis [facility] [address] [place] [address] 02/22/2025 KEVIN GREY PLAN OF TREATMENT Next Appt Details Provider Name:BULMARO DEMPSEY, 03/02/2025 09:15:00 AM, [address] , [place], [address], Provider Name:BULMARO DEMPSEY, 03/09/2025 03:00:00 PM, [address] , [place], [address], Provider Name:KEVIN GREY, 03:00:00 PM, [address] [place], [address], Progress Notes * ELDER SERVIN GUILHERMEDOB: (44 yo M)Acc No.[id number]:02/22/2025 Patient:??ELDER SERVIN RUSLAN AEL :1980?Age:44 Y?Sex:Collette hernandez Address:[address] , [place] [address] * true * Date:??
== END 2025-02-28 16:51 | disposition home or self-care (01) ==
LOC: HO.HUSH 16:07
PROVIDERS: PCP Physician Assistant Medical; Visit Provider Nurse Practitioner Family
DX: N20.0 Calculus of kidney (principal)
CPT/HCPCS: 99213

== ENCOUNTER 2025-08-16 15:29 | Outpatient (REF) | payer OTHER, SELFPAY ==
--- NOTE | ~2025-08-16 | US_ITS ---
EXAMINATION: US KIDNEY BILATERAL HISTORY: N20.0 - Calculus of kidney TECHNIQUE: Real-time grayscale ultrasound imaging of the kidneys was performed and images were reviewed. COMPARISON: Comparison is made with the prior examination dated 02/17/2025. FINDINGS: Right kidney: The right kidney measures 11.5 x 6.5 x 5.8 cm. Renal parenchymal echotexture and thickness are normal. There are no masses. There is no hydronephrosis or renal calculi. Left Kidney: The left kidney measures 13.0 x 6.5 x 5.1 cm. Renal parenchymal echotexture and thickness are normal. There are no masses. There is no hydronephrosis or renal calculi. US/US renal BI IMPRESSION: Unremarkable renal ultrasound. Electronically signed by: Ari Islas MD 08/16/2025 03:44 PM EDT
== END 2025-08-16 15:30 | disposition home or self-care (01) ==
LOC: HO.HMGCX 15:29
PROVIDERS: PCP Physician Assistant Medical; Visit Provider Nurse Practitioner Family
DX: N20.0 Calculus of kidney (principal)
CPT/HCPCS: 76775

== ENCOUNTER → 2025-08-16 15:30 | Outpatient (BNV) | payer OTHER, SELFPAY | PROVIDERS: PCP Physician Assistant Medical; Visit Provider Radiology Diagnostic Radiology | DX: N20.0 Calculus of kidney (principal) | CPT/HCPCS: 76775 ==